=== PATIENT | male | born 1965 | race Caucasian/White ===

== ENCOUNTER 2022-03-31 22:51 | Emergency (ER) | payer OTHER ==
[~2022-03-31] VITALS: Ht 182.9 cm; Wt 120.0 kg
[2022-04-01 00:44] LABS: Basophils # (auto) 0.1 10 ^3/uL (0-0.2); Basophils % (auto) 1.1 % (0.0-2.0); Eosinophils # (auto) 0.2 10 ^3/uL (0-0.8); Hemoglobin 14.4 g/dL (13.5-17.5); Red Cell Distribution Width 17.3 % (11.8-14.3)
[2022-04-01 00:46] VITALS: BP 160/90
[2022-04-01 00:46] LABS: Eosinophils % (auto) 2.3 % (0.0-7.0); Hematocrit 41.7 % (41.0-53.0); Lymphocytes # (auto) 1.1 10 ^3/uL (0.4-5.4); Lymphocytes % (auto) 15.2 % (10.0-50.0); Mean Corpuscular Hemoglobin 27.3 pg (28.0-32.0); Mean Corpuscular Hgb Conc. 34.5 g/dL (32.0-36.0); Mean Corpuscular Volume 79.2 fL (80.0-100.0); Neutrophils # (auto) 4.7 10 ^3/uL (1.6-8.6); Neutrophils % (auto) 67.4 % (37.0-80.0); Red Blood Cells 5.26 10^6/uL (4.5-5.90)
[2022-04-01 00:52] LABS: Albumin 3.9 g/dL (3.4-5.0); BUN/Creatinine Ratio 17.4; Potassium 4.4 mmol/L (3.5-5.1)
[2022-04-01 00:54] LABS: Bilirubin, Total 0.2 mg/dL (0.2-1.0); Total Protein 7.3 g/dL (6.4-8.2)
== END 2022-04-01 04:35 | disposition left against medical advice (07) ==
LOC: EDBD 22:51 → ER 22:51
DX: R10.11 Right upper quadrant pain (principal); R06.02 Shortness of breath; Z53.21 Procedure and treatment not carried out due to patient leaving prior to being seen by health care provider
CPT/HCPCS: 36415; 80053; 83880; 84484; 85025; 93005

== ENCOUNTER 2024-06-14 22:53 | Emergency (ER) | payer MEDICAID, OTHER ==
[~2024-06-14] VITALS: Ht 177.8 cm; Wt 92.3 kg
--- NOTE | 2024-06-15 00:10 | DVH ---
EXAMINATION: XY R RIB XRAY INDICATION: INJURY PAIN COMPARISON: None TECHNIQUE: Single frontal view of the chest and multiple views of the left ribs. FINDINGS: No focal consolidation, pleural effusion or significant pneumothorax. Normal cardiomediastinal silhou ette. No displaced left rib fracture. IMPRESSION: No acute cardiopulmonary disease. No displaced left rib fracture.
[2024-06-15 00:32] VITALS: BP 146/73; PULSE 105; RESP 19; TEMP 97.8; O2SAT 92
--- NOTE | 2024-06-15 00:55 | ED.PDOC ---
Mult. trauma (HPI) HPI Comments PT PRESENTED TO ED FOR SUDDEN ONSET RIGHT RIB PAIN X5 HOURS AGO AFTER SNEEZING. PT STATED HE THINKS "THE POLICE DID IT BECAUSE THEY TACKLED ME ON TUESDAY." [facility]- 15, ALL VSS. HE HAS NUMBNESS, WEAKNESS, LOSS OF BOWEL BLADDER CONTROL, SADDLE ANESTHESIA, NECK PAIN, BACK PAIN, COUGHING UP BLOOD, NAUSEA, VOMITING, ABDOMINAL PAIN Chief Complaint: Rib Pain Time Seen by MD: 23:24 Primary Care Provider: UNK Reviewed notes: Nurses Notes, Medications, Allergies Allergies: Coded Allergies: Codeine (Verified Allergy, Unknown, 04/01/22) Information Source: Patient Mode of Arrival: Ambulatory Past Medical History PAST MEDICAL HISTORY: Denies Surgical History: Denies all surgeries Family History Family History: Reviewed,noncontributory to illness Social History Smoker: Non-Smoker Alcohol: Denies ETOH Use Drugs: Denies Drug Use Constitutional: denies: chills, diaphoresis, fatigue, fever, malaise, sweats, weakness, others EENTM: denies: blurred vision, double vision, ear bleeding, ear discharge, ear drainage, ear pain, ear ringing, eye pain, eye redness, hearing loss, mouth pain, mouth swelling, nasal discharge, nose bleeding, nose congestion, nose pain, photophobia, tearing, throat pain, throat swelling, voice changes, others Respiratory: denies: cough, hemoptysis, orthopnea, SOB at rest, shortness of breath, SOB with excertion, stridor, wheezing, others Cardiovascular: denies: chest pain, dizzy spells, diaphoresis, Dyspnea on exe rtion, edema, irregular heart beat, left arm pain, lightheadedness, palpitations, PND, syncope, others Gastrointestinal: denies: abdomen distended, abdominal pain, blood streaked bowels, constipated, diarrhea, dysphagia, difficulty swallowing, hematemesis, melena, nausea, poor appetite, poor fluid intake, rectal bleeding, rectal pain, vomiting, others Genitourinary: denies: burning, dysuria, flank pain, frequency, hematuria, incontinence, penile discharge, penile sore, pain, testicle pain, testicle swelling, urgency, others Neurological: denies: dizziness, fainting, headache, left sided numbness, left sided weakness, numbness, paresthesia, pre-existing deficit, right sided numbness, right sided weakness, seizure, speech problems, tingling, tremors, weakness, others Musculoskeletal: reports: others (RIGHT SIDED RIB PAIN); denies: back pain, gout, joint pain, joint swelling, muscle pain, muscle stiffness, neck pain Integumetry: denies: bruises, change in color, change in hair/nails, dryness, laceration, lesions, lumps, rash, wounds, others Allergic/Immunocompromised: denies: Difficulty Healing, Frequent Infections, Hives, Itching, others Hematologic/Lymphatic: denies: anemia, blood clots, easy bleeding, easy bruisin g, swollen glands, others Endocrine: denies: excessive hunger, excessive sweating, excessive thirst, excessive urination, flushing, intolerance to cold, intolerance to heat, unexplained weight gain, unexplained weight loss, others Psychiatric: denies: anxiety, bipolar disorder, depression, hopeless, panic disorder, schizophrenia, sleepless, suicidal, others Physical Exam General Appearance: No Apparent Distress, Normal HEENT: Normal ENT Inspection, Pharynx Normal, TMs Normal Neck: Full Range of Motion, Non-Tender Respiratory: Chest Non-Tender, Lungs Clear, No Accessory Muscle Use, No Respiratory Distress, Normal Breath Sounds Cardiovascular: No Edema, No JVD, No Murmur, No Gallop, Normal Peripheral Pulses, Regular Rate/Rhythm Breast Exam: Deferred Gastrointestinal: No Organomegaly, Non Tender, No Pulsatile Mass, Normal Bowel Sounds, Soft Genitalia: Deferred Pelvic: Deferred Rectal: Deferred Extremities: Normal capillary refill, Normal inspection, Normal range of motio n, Non-tender, No pedal edema Musculoskeletal : Location: Right (TENDERNESS PALPATED OVER POSTERIOR RIGHT-SIDED RIBCAGE NO NOTED CREPITUS OR FLAIL CHEST. NO TENDERNESS OVER THORACIC OR LUMBAR SPINE WITHOUT CREPITUS, STEP-OFFS.) Apperance: Normal Neurologic: Alert, prescription clerk II-XII nml as Tested, No Motor Deficits, Normal Affect, Normal Mood, No Sensory Deficits Cerebellar Function: Normal Reflexes: Normal Skin: Dry, Normal Color, Warm Lymphatic: No Adenopathy Was a procedure done? Was a procedure done?: No Differential Diagnosis Multiple Trauma: Fractures X-Ray, Labs, Meds, VS Vital Signs Date Time Temp Pulse Resp B/P (MAP) Pulse Ox O2 Delivery O2 Flow Rate FiO2 3/14/25 00:32 105 19 92 Room Air 06/15/24 00:32 97.8 105 19 146/73 (97) 92 97.8 06/14/24 23:20 97.8 106 20 135/86 (102) 95 Lab Test 06/14/24 23:24 Range/Units POC Glucose 228 H 70-106 mg/dl X-Ray, Labs, Meds, VS Comment RIB X-RAY SHOW NO ACUTE FRACTURES, OR DISLOCATIONS, OSSEOUS LESIONS.. RIB CONTUSION. ADVISED PATIENT [id number] TYLENOL OR MOTRIN NEEDED FOR PAIN PER LABELED DOSING INSTRUCTIONS. ALTERNATE BETWEEN ICE AND HEAT. ADVISED TO FOLLOW UP WITH HIS PCP IN 1-2 DAYS CONSIDER FURTHER IMAGING IF SYMPTOMS PERSIST. ER RETURN PRECAUTIONS GIVEN PATIENT INDICATES UNDERSTANDING AGREES WITH DISCHARGE PLAN OF CARE. Time of 1ST Reevaluation: 00:50 Reevaluation 1ST: Improved Patient Education/Counseling: Diagnosis, Treatment, Prognosis, Need For Follow Up Family Education/Counseling: No Family Present Departure 1 Departure Time of Disposition: 00:54 Impression: Primary Impression: Contusion of rib on right side Qualified Codes: S20.211A - Contusion of right front wall of thorax, initial encounter Disposition: 01 HOME / SELF CARE / HOMELESS Condition: Stable Discharged With: Self Critical Care Note Critical Care Time?: No Stability Stability form required: MIGUEL A Olsen Jun 15, 2024 00:55
== END 2024-06-15 01:03 | disposition home or self-care (01) ==
LOC: ER 22:53
DX: S20.211A Contusion of right front wall of thorax, initial encounter (principal); Z88.5 Allergy status to narcotic agent; Z79.899 Other long term (current) drug therapy; W51.XXXA Accidental striking against or bumped into by another person, initial encounter; Y93.29 Activity, other involving ice and snow; Y92.89 Other specified places as the place of occurrence of the external cause; Y99.8 Other external cause status
CPT/HCPCS: 71101; 82947; 82962